=== PATIENT | female | born 1985 | race Two or more races ===

== ENCOUNTER 2024-08-31 20:54 | Emergency (ER) | payer MEDICAID, OTHER ==
[~2024-08-31] VITALS: Ht 165.1 cm; Wt 70.9 kg
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
--- NOTE | 2024-08-31 22:55 | DVH ---
CLINICAL INDICATION: crush injury TECHNIQUE: XY L ANKLE 3 VIEW Comparison: None FINDINGS: No osseous or joint abnormality with no joint effusion, fracture or dislocation. Ankle mortise appear s normal. IMPRESSION: No abnormality demonstrated.
--- NOTE | 2024-08-31 22:55 | DVH ---
XY L TIB FIB XRAY, August 31, 2024 INDICATION: crush injury TECHNICAL DATA: Frontal and lateral views were obtained of the . COMPARISON: None FINDINGS: There is no osseous abnormality. Soft tissues are normal. IMPRESSION: 1. No acute fracture or dislocation.
--- NOTE | 2024-08-31 22:58 | DVH ---
EXAMINATIONS: 4 views of the left femur CLINICAL HISTORY: crush injury COMPARISON: None Findings and impression: No grossly displaced fractures, dislocations or bony destructive changes are identified.
[2024-08-31] MEDS ORDERED: IBUP-1454 PO (23:02)
[2024-08-31] MEDS: KETOROLAC TROMETH 30 MG/ML 1ML VIAL IM ONE (23:35)
[2024-08-31 23:36] VITALS: BP 103/69; TEMP 98.9
[2024-08-31 23:40] VITALS: PULSE 91; RESP 17; O2SAT 100
== END 2024-08-31 23:41 | disposition home or self-care (01) ==
LOC: ER 20:54
DX: S80.12XA Contusion of left lower leg, initial encounter (principal); W23.0XXA Caught, crushed, jammed, or pinched between moving objects, initial encounter; Y93.89 Activity, other specified; Y92.410 Unspecified street and highway as the place of occurrence of the external cause; Y99.8 Other external cause status
CPT/HCPCS: 73552; 73590; 73610; 96372; 99284; J1885

== ENCOUNTER 2025-02-20 23:47 | Emergency (ER) | payer MEDICAID, OTHER ==
[~2025-02-20] VITALS: Ht 165.1 cm; Wt 57.0 kg
[~2025-02-20 23:47] MED LIST: IBUP-1454 PO
[2025-02-20 23:48] VITALS: BP 120/61; PULSE 94; RESP 18; TEMP 98.4; O2SAT 100
[2025-02-21] MEDS ORDERED: ONDANSETRON ODT 4 MG TAB PO ONE (00:15)
[2025-02-21] MEDS ORDERED: HYDROcodone-ACET 10/325MG TAB PO ONE (00:15)
--- NOTE | 2025-02-21 00:16 | ED.PDOC ---
History of Present Illness HPI Comments 39 y/o F, with no significant history, presents with c/c of abdominal pain. Patient endorses on sudden onset of pain [place] of [place]. Patient comments on hearing a pop then and suspects on having a hernia. No pertinent medical or surgical history. Denial of any nausea, vomiting, diarrhea, or further associated symptoms. Chief Complaint: Abdominal Pain Time Seen by MD: 00:00 Reviewed Notes: Nurses Notes, Medications, Allergies Allergies: Coded Allergies: NO KNOWN ALLERGIES (Unverified , 08/31/24) Home Meds Active Scripts Ibuprofen (Ibuprofen) 600 Mg Tab, 1 TAB PO TID, #30 TAB Prov:GEORGIA SHUKLA DIYA 08/31/24 Information Source: Patient Mode of Arrival: Ambulatory Severity: Moderate Timing: Hours Duration: Since onset Prehospital treatment: None Past Medical History PAST MEDICAL HISTORY: Denies Surgical History: Denies all surgeries HAULAGE ENGINE OPERATOR History: No Pertinent HAULAGE ENGINE OPERATOR History Family History Family History: Reviewed,noncontributory to illness Social History Smoker: Non-Smoker Alcohol: Denies ETOH Use Drugs: Denies Drug Use Lives In: Home All Other Systems: Reviewed and Negative (Comprehensive review of systems are negative unless stated in HPI) Physical Exam General Appearance: Mild Distress, Normal HEENT: Normal ENT Inspection, Pharynx Normal, TMs Normal Neck: Full Range of Motion, Non-Tender, Normal, Normal Inspection Respiratory: Chest Non-Tender, Lungs Clear, No Accessory Muscle Use, No Respiratory Distress, Normal Breath Sounds Cardiovascular: No Edema, No JVD, No Murmur, No Gallop, Normal Peripheral Pulses, Regular Rate/Rhythm Breast Exam: Deferred Gastrointestinal: No Organomegaly, Non Tender, No Pulsatile Mass, Normal Bowel Sounds, Soft Genitalia: Deferred Pelvic: Deferred Rectal: Deferred Extremities: No calf tenderness, Normal capillary refill, Normal inspection, Normal range of motion, Non-tender, No pedal edema Musculoskeletal : Apperance: Normal Neurologic: Alert, home theatre technician II-XII nml as Tested, No Motor Deficits, Normal Affect, Normal Mood, No Sensory Deficits Cerebellar Function: Normal Reflexes: Normal Skin: Dry, Normal Color, Warm Lymphatic: No Adenopathy Was a procedure done? Was a procedure done?: No Differential Dx Considerations may include: hernia, sprain, gastritis, gastroenteritis, among others X-Ray, Labs, Meds, VS Vital Signs Date Time Temp Pulse Resp B/P (MAP) Pulse Ox O2 Delivery O2 Flow Rate FiO2 02/20/25 23:48 98.4 94 18 120/61 100 98.4 Time of 1ST Reevaluation: 00:30 Reevaluation 1ST: Unchanged Patient Education/Counseling: Diagnosis, Treatment Family Education/Counseling: No Family Present SEPSIS Sepsis Screen Date sepsis recognized/suspect: Feb 20, 2025 Time Sepsis recognized/suspect: 2352 Recent Procedure: No On Antibiotic Therapy: No Respiratory Rate >20: No Heart Rate >90: Yes Temp<36 C (96.8 F) or >38.3 C: No SBP <90 or MAP <65 mmHG: No New Acute Mental Status Change: No Is the patient on CPAP, BIPAP,: No Vital Signs Date Time Temp Pulse Resp B/P (MAP) Pulse Ox O2 Delivery O2 Flow Rate FiO2 02/20/25 23:48 98.4 94 18 120/61 100 98.4 Departure 1 Departure Time of Disposition: 01:30 Impression: Primary Impression: Abdominal pain Disposition: 07 LEFT AWOL/ELOPED Condition: Fair Discharged With: Self Critical Care Note Critical Care Time?: No Stability Stability form required: No Heart Score Heart Score: Heart Score Response (Comments) Value History N/A 0 EKG N/A 0 Age N/A 0 Risk Factors N/A 0 Troponin N/A 0 Total 0 I personally scribed for JOSUE BROWN MD ([email or web address]) on 02/21/25 at 00:16. Electronically submitted by Brady Baker ([email or web address]). JOSUE BROWN MD Feb 21, 2025 00:16
== END 2025-02-21 00:44 | disposition left against medical advice (07) ==
LOC: ER 23:47
DX: R10.9 Unspecified abdominal pain (principal); Z79.899 Other long term (current) drug therapy